=== PATIENT | female | born 1960 | race Caucasian/White ===

== ENCOUNTER 2019-01-22 19:19 | Inpatient (IN) | payer OTHER ==
--- NOTE | 2019-01-22 20:25 | PDOC ---
History of Present Illness - General Chief Complaint: Injury Stated Complaint: LFT WRIST PAIN Time Seen by Provider: 01/22/19 20:20 History Source: Patient Exam Limitations: No Limitations - History of Present Illness Initial Comments: 01/22/19 20:23 HISTORY OF PRESENT ILLNESS: 58-year-old woman past medical history of cerebral palsy presents emergency Department with left wrist pain status post fall on outstretched hand. Patient reports she lost her balance while walking fall forward onto her wrist. Patient noted sudden onset pain and deformity within her wrist. No recent travel or sick contacts. PAST MEDICAL HISTORY: see HPI SURGICAL HISTORY: Denies ALLERGIES: No known drug allergies REVIEW OF SYSTEMS General/Constitutional: Denies fever or chills. Denies weakness, weight change. HEENT: Denies change in vision. Denies ear pain or discharge. Denies sore throat. Cardiovascular: Denies chest pain or shortness of breath. Respiratory: Denies cough, wheezing, or hemoptysis. Gastrointestinal: Denies nausea, vomiting, diarrhea or constipation. Denies rectal bleeding. Genitourinary: Denies dysuria, frequency, or change in urination. Musculoskeletal: see HPI Skin and breasts: Denies rash or easy bruising. Neurologic: Denies headache, vertigo, loss of consciousness, or loss of sensation. Psychiatric: Denies depression or anxiety. Endocrine: Denies increased thirst. Denies abnormal weight change. Hematologic/Lymphatic: Denies anemia, easy bleeding, or history of blood clots. Allergic/Immunologic: Denies hives or skin allergy. Denies latex allergy. PHYSICAL EXAM General Appearance: Well-appearing, appropriately dressed. No apparent distress , no intoxication. HEENT: EOMI, PERRLA, normal ENT inspection, normal voice, TMs normal, pharynx normal. No conjunctival pallor. No photophobia, scleral icterus. Neck: Supple. Trachea midline. No tenderness, rigidity, carotid bruit, stridor , lymphadenopathy, or thyromegaly. Respiratory/Chest: Lungs CTAB. No shortness of breath, chest tenderness, respiratory distress, accessory muscle use. No crackles, rales, rhonchi, stridor , wheezing, dullness Cardiovascular: RRR. S1, S2. No JVD, murmur, bradycardia, tachycardia. Musculoskeletal/Extremities: Deformity noted of the left wrist. Tender to palpation over the radius at the level of the mid forearm. 2+ radial pulses present. Decreased range of motion with extension of the wrist. Capillary refill is less than 2 seconds. Full sensation noted distal to injury. Integumentary: Appropriate color, dry, warm. No cyanosis, erythema, jaundice or rash 01/22/19 22:35 01/22/19 22:38 Past History - Past Medical History Allergies/Adverse Reactions: Allergies Allergy/AdvReac Type Severity Reaction Status Date / Time No Known Allergies Allergy Verified 01/22/19 19:38 Home Medications: Ambulatory Orders Aspirin [ASA -] 81 mg PO DAILY 01/22/19 COPD: No - Suicide/Smoking/Psychosocial Hx Smoking History: Never smoked Have you smoked in the past 12 months: No Information on smoking cessation initiated: No Hx Alcohol Use: No Drug/Substance Use Hx: No *Physical Exam - Vital Signs Last Vital Signs Temp Pulse Resp BP Pulse Ox 98.1 F 109 H 18 124/94 100 01/22/19 19:36 01/22/19 19:36 01/22/19 19:36 01/22/19 19:36 01/22/19 19:36 ED Treatment Course - LABORATORY CBC & Chemistry Diagram: 01/22/19 20:52 01/22/19 20:52 Medical Decision Making - Medical Decision Making 01/22/19 20:24 A/P: 58-year-old woman with left wrist pain status post FOOSH Patient is refusing analgesics at this time Tender to palpation over the ulna at the mid shaft X-rays of hand, wrist and forearm of the left arm Reassess 01/22/19 21:10 Case was discussed with Dr. Landeros of orthopedics who will come to the emergency department for closed reduction of the radius. 01/22/19 22:34 Postreduction films reveal inability to reduce. Patient will be admitted to the hospitalist service for medical clearance prior to ORIF with orthopedics tomorrow. Patient is to be nothing by mouth after midnight. 01/22/19 22:41 Upon further discussion with orthopedics, he is unsure he'll have the equipment required to remove previous plate that was put in. He recommends transfer to tertiary care center [facility] to remove the old plate and performed a new surgery. Patient has been signed out to [facility] for continued evaluation and transfer. *DC/Admit/Observation/Transfer Diagnosis at time of Disposition: Distal radius fracture, left Qualifiers: Encounter type: initial encounter Fracture type: closed - Referrals - Patient Instructions - Post Discharge Activity
[2019-01-22 21:02] LABS: BASO % 0.3 % (0-2.0); EOS % 0.1 % (0-4.5); HEMATOCRIT 40.9 % (32.4-45.2); HEMOGLOBIN 13.8 GM/dL (10.7-15.3); LYMPH % 13.3 % (8-40); MCHC 33.7 g/dl (32.0-36.0); MEAN PLT VOLUME 8.9 fl (7.5-11.1); MONO % 6.2 % (3.8-10.2); NEUT % 80.1 % (42.8-82.8); PLATELET COUNT 248 K/MM3 (134-434); RBC 4.45 M/mm3 (3.60-5.2); RDW 13.3 % (11.6-15.6); WHITE BLOOD COUNT 10.7 K/mm3 (4.0-10.0)
[2019-01-22] MEDS ORDERED: LIDOCAINE HCL 2% (50ML VIAL) SNB ONE (21:07)
[2019-01-22 21:13] LABS: INR 1.05 (0.83-1.09); PROTHROMBIN TIME (PATIENT) 12.4 SEC (9.7-13.0)
[2019-01-22] MEDS ORDERED: LIDOCAINE HCL 1%, 10 MG/ML (20ML VIAL) ONE (21:15)
[2019-01-22] MEDS ORDERED: LIDOCAINE HCL 1%, 10 MG/ML (50 mL VIAL) IO ONE (21:31)
[2019-01-22] MEDS ORDERED: morphine CARPU-JECT 2 MG/1 ML DISP.SYRIN IVPUSH ONE (21:33)
[2019-01-22] MEDS ORDERED: morphine SULFATE 4 MG/ML VIAL ONE (21:38)
[2019-01-22 21:39] LABS: ANION GAP 10 MMOL/L (8-16); BLOOD UREA NITROGEN 25 mg/dL (7-18); CALCIUM 9.1 mg/dL (8.5-10.1); CHLORIDE 107 mmol/L (98-107); CO2 22 mmol/L (21-32); CREATININE 0.6 mg/dL (0.55-1.3); GLUCOSE,RANDOM 100 mg/dL (74-106); SODIUM 139 mmol/L (136-145)
[2019-01-22 21:40] LABS: POTASSIUM 4.4 mmol/L (3.5-5.1)
--- NOTE | 2019-01-22 21:40 | CONSULT ---
Consult - text type - Consultation Consultation Note: ORTHOPEDIC SURGERY CONSULTATION NOTE Department of Orthopedic Surgery HISTORY OF PRESENT ILLNESS Ms. Granado is a 58 year old right hand dominant female with history of CP who presents to [facility] Emergency Room s/p fall with left wrist pain. The orthopedic service was consulted for a wrist fracture. The injury occurred after a fall onto outstretched hand at home. The patient notes significant pain and swelling of the left wrist. Denies any other injuries. Denies numbness, tingling or other constitutional complaints. Denies tobacco use, drug use, alcohol abuse. The patient lives with family and uses an assistive device at baseline. She states she loses her balance when she stands up too quickly. She denies any dizziness, LOC, or headache. Patient states that she fell onto her outstretched left arm in the past as well and had a distal radius fracture that was treated with a plate and screws. Patient does not remember who did her surgery, but believes it was performed at an outside tertiary care center several years ago. FAMILY HISTORY non-contributory REVIEW OF SYMPTOMS A twelve-point review of systems was performed and was negative except as noted in HPI. PHYSICAL EXAM Constitutional: Alert and oriented to person, place, and time. Appears well- developed and well-nourished. No acute distress, appropriate mood and affect. Right Upper Extremity: Skin warm, dry, and intact; no lesions, rashes or ulcers noted. Muscle mass equal and symmetric to contralateral side. No atrophy noted. No masses or effusions noted. No tenderness to palpation all joints; non-tender throughout rest of extremity. Full passive and active ROM, free from pain. Joints stable with no pathologic laxity. M/R/U/MSK/AX motor intact; SILT distally; 2+ radial pulses; Cap refill brisk. Tone and reflexes normal. Left Upper Extremity: Skin warm, dry, and intact; no lesions, rashes or ulcers noted. Muscle mass equal and symmetric to contralateral side. No atrophy noted. No masses or effusions noted. Tender to palpation at the distal radius with an obvious deformity. No tenting of the skin noted; nontender throughout rest of extremity. Full passive and active ROM of the elbow and shoulder, free from pain. LROM of the left wrist secondary to pain and swelling. Joints otherwise stable with no pathologic laxity. M/R/U/MSK/AX motor intact; SILT distally; 2+ radial pulses; Cap refill brisk. Tone and reflexes normal. Right Lower Extremity: Skin warm, dry, and intact; no lesions, rashes or ulcers noted. Muscle mass equal and symmetric to contralateral side. No atrophy noted. No masses or effusions noted. No tenderness to palpation all joints; nontender throughout rest of extremity. No cords or calf tenderness No significant calf/ankle edema. Full passive and active ROM, free from pain. Joints stable with no pathologic laxity. EHL/TA/GS motor intact; SILT distally; 2+ DP pulses; Cap refill brisk. Tone and reflexes normal. Left Lower Extremity: Skin warm, dry, and intact; no lesions, rashes or ulcers noted. Muscle mass equal and symmetric to contralateral side. No atrophy noted. No masses or effusions noted. No tenderness to palpation all joints; nontender throughout rest of extremity. No cords or calf tenderness No significant calf/ankle edema. Full passive and active ROM, free from pain. Joints stable with no pathologic laxity. EHL/TA/GS motor intact; SILT distally; 2+ DP pulses; Cap refill brisk. Tone and reflexes normal. Social History Smoking history Never smoked Hx Alcohol Use No Allergies Allergy/AdvReac Type Severity Reaction Status Date / Time No Known Allergies Allergy Verified 01/22/19 19:38 Vital Signs (last) Temp Pulse Resp BP Pulse Ox 98.1 F 109 H 18 124/94 100 01/22/19 19:36 01/22/19 19:36 01/22/19 19:36 01/22/19 19:36 01/22/19 19:36 Intake and Output 01/20/19 01/21/19 01/22/19 23:59 23:59 23:59 Other: Weight 140 lb Height 4 ft 11.5 in Body Mass Index (BMI) 27.8 Weight Measurement Method Standing Scale PT with INR 12.40 SEC (9.7-13.0) 01/22/19 20:52 IMAGING I personally reviewed all radiographs, and other relevant imaging. They demonstrate a left ngoc-implant distal third radius fracture at the level of the most proximal portion of the implant. ASSESSMENT AND PLAN Ms. Granado is a 58 year old female presenting status post fall with a left sided distal third ngoc-implant fracture. We have reviewed the imaging and clinical findings in detail, as well as their potential implications. After appropriate informed discussion, the patient was placed in a well-padded sugartong splint. Patient was instructed regarding: non weight bearing on fractured side in sling. signs and symptoms of compartment syndrome and need to seek immediate care should new onset numbness, tingling, or significantly increasing pain occur. maintain strict elevation above the level of the heart keeping the splint clean and dry. - I explained to the patient that this type of fracture will require a revision distal radius open reduction internal fixation, and she would like to be transferred to [facility] at this time for further surgical care. I think this is reasonable seeing as the fracture is operative and will require further workup of her previous surgery and surgeon before the procedure. All questions were answered. Thank you for involving our team in the care of this patient. PROCEDURE NOTE: After verbal consent obtained and allergies reviewed with patient, 5cc's of 2% Lidocaine plain was injected as a hematoma block into the left distal radius fracture hematoma using strict sterile precautions. The patient tolerated this well. A reduction maneuver was then performed and a well padded sugartong splint was applied. The patient tolerated this well, and was able to move her fingers and had no numbness or tingling. Post Reduction X-rays unchanged, and patient refusing another reduction and splinting at this time.
[2019-01-22] MEDS ORDERED: ONDANSETRON 4 MG/2 ML VIAL ONE (21:49)
[2019-01-22] MEDS ORDERED: ONDANSETRON 4 MG/2 ML VIAL IVPUSH ONE (21:54)
--- NOTE | 2019-01-22 22:42 | PDOC ---
*Physical Exam - Vital Signs Last Vital Signs Temp Pulse Resp BP Pulse Ox 98.1 F 109 H 18 124/94 100 01/22/19 19:36 01/22/19 19:36 01/22/19 19:36 01/22/19 19:36 01/22/19 19:36 ED Treatment Course - LABORATORY CBC & Chemistry Diagram: 01/26/19 06:00 01/26/19 06:00 - ADDITIONAL ORDERS Additional order review: Laboratory Results 01/22/19 01/22/19 01/22/19 20:52 20:52 20:52 PT with INR 12.40 INR 1.05 Sodium 139 Potassium 4.4 Chloride 107 Carbon Dioxide 22 Anion Gap 10 BUN 25 H Creatinine 0.6 Creat Clearance w eGFR 102.32 Random Glucose 100 Calcium 9.1 Blood Type Cancelled Antibody Screen Cancelled 01/22/19 20:52 RBC 4.45 MCV 92.0 MCHC 33.7 RDW 13.3 MPV 8.9 Neutrophils % 80.1 Lymphocytes % 13.3 Monocytes % 6.2 Eosinophils % 0.1 Basophils % 0.3 - Medications Given in the ED: ED Medications Discontinued Medications Generic Name Dose Route Start Last Admin Trade Name Freq PRN Reason Stop Dose Admin Lidocaine HCl 20 mg 01/22/19 21:07 01/22/19 21:35 Xylocaine 2% SNB 01/22/19 21:08 Not Given ONCE ONE Lidocaine HCl 20 ml 01/22/19 21:31 01/22/19 21:35 Xylocaine 1% IO 01/22/19 21:32 20 ml ONCE ONE Administration Morphine Sulfate 2 mg 01/22/19 21:33 01/22/19 21:53 Morphine Injection - IVPUSH 01/22/19 21:34 2 mg ONCE ONE Administration Ondansetron HCl 4 mg 01/22/19 21:54 01/22/19 21:56 Zofran Injection IVPUSH 01/22/19 21:55 4 mg ONCE ONE Administration Medical Decision Making - Medical Decision Making 01/22/19 22:41 Patient signed out by SHARONDA Zuniga In short patient is a 58 year old woman with L wrist pain after falling on outstretched arm, now with displaced distal radial fx Orthopedics evaluated patient will admit for pain control and plan for OR hardware removal Discussed case with Dr. Landeros, orthopedics *DC/Admit/Observation/Transfer Diagnosis at time of Disposition: Distal radius fracture, left Qualifiers: Encounter type: initial encounter Fracture type: closed - Discharge Dispostion Disposition: HOME Condition at time of disposition: Fair Decision to Admit order: Yes - Referrals - Patient Instructions - Post Discharge Activity
--- NOTE | 2019-01-22 22:59 | PN ---
Teaching Attending Note Name of Resident: Claritza García ATTENDING PHYSICIAN STATEMENT I saw and evaluated the patient. I reviewed the resident's note and discussed the case with the resident. I agree with the resident's findings and plan as documented. SUBJECTIVE: Patient is a 58 year old woman right hand dominant with PMH of Cerebral palsy to the ER with left wrist pain after a fall. The injury occurred after a fall onto outstretched hand at home. The patient notes significant pain and swelling of the left wrist. Denies any other injuries. Denies numbness, tingling or other constitutional complaints. Denies tobacco use, drug use, alcohol abuse. The patient lives with family and uses an assistive device at baseline. She states she loses her balance when she stands up too quickly. She denies any dizziness, LOC, or headache. Patient states that she fell onto her outstretched left arm in the past as well and had a distal radius fracture that was treated with a plate and screws. Patient does not remember who did her surgery, but believes it was performed at [facility] several years ago. OBJECTIVE: Alert Vital Signs Period Temp Pulse Resp BP Sys/Wallace Pulse Ox Last 24 Hr 98.1 F 109 18 124/94 100 HEENT: No Jaundice, eye redness or discharge, PERRLA, EOMI. Normocephalic, atraumatic. External ears are normal and hearing is grossly intact. No nasal discharge. Neck: Supple, nontender. No palpable adenopathy or thyromegaly. No JVD Chest: Good effort. Clear to auscultation and percussion. Heart: Regular. No S3, rub or murmur Abdomen: Not distended, soft, nontender and no HSM. No rebound or guarding. Normal bowel sounds. Ext: Peripheral pulses intact. No leg edema. Skin: Warm and dry. No petechiae, rash or ecchymosis. Neuro: Alert. Oriented x3. CN 2-12 grossly intact. Sensation grossly intact in all four extremities and DTR are symmetric. Psych: Appropriate mood and affect. Good insight. Home Medications Medication Instructions Recorded Aspirin [ASA -] 81 mg PO DAILY 01/22/19 Abnormal Lab Results 01/22/19 01/22/19 20:52 20:52 WBC 10.7 H Absolute Neuts (auto) 8.6 H BUN 25 H ASSESSMENT AND PLAN: 1. Closed left radius fracture - 2. DVT prophylaxis - Lovenox 40 mg SQ q 24 hours. 3. Advance directives - Full code
--- NOTE | 2019-01-23 01:21 | PN ---
Progress Note (short form) - Note Progress Note: Patient's transfer refused by [facility], therefore the patient will be admitted to [facility] for observation. It was discovered that the patient had her left distal radius ORIF performed by Dr. Ladd at [facility] in 2012; the patient's records at that time were under the last name [facility]. Plan: -Admit to medical team for observation overnight, and evaluation by Dr. Ladd -Pain Control -DVT prophylaxis -Strict ice / elevation left wrist in splint (prop up with pillow under wrist) -Keep splint clean/dry/intact -Will discuss with Dr. Ladd for further orthopedic care.
[2019-01-23] MEDS ORDERED: ACETAMINOPHEN 325 MG TABLET (FP) PO PRN (02:17)
[2019-01-23] MEDS ORDERED: MORPHINE SULFATE 2 MG/ML VIAL IVPUSH PRN (02:17)
[2019-01-23] MEDS ORDERED: oxyCODONE HCL 5 MG TABLET PO PRN ×2 (02:17)
--- NOTE | 2019-01-23 03:00 | PN ---
Teaching Attending Note Name of Resident: Arianna Brown ATTENDING PHYSICIAN STATEMENT I saw and evaluated the patient. I reviewed the resident's note and discussed the case with the resident. I agree with the resident's findings and plan as documented. SUBJECTIVE: Patient is a 58 year old right hand dominant woman with PMH of cerebral palsy who presents to the ER with left wrist pain after a fall. The injury occurred after a fall onto outstretched hand at home. The patient notes significant pain and swelling of the left wrist. Denies any other injuries. Denies numbness, tingling or other constitutional complaints. Denies tobacco use, drug use, alcohol abuse. The patient lives with family and uses an assistive device at baseline. She states she loses her balance when she stands up too quickly. She denies any dizziness, LOC, or headache. Patient states that she fell onto her outstretched left arm in the past as well and had a distal radius fracture that was treated with a plate and screws. Patient does not remember who did her surgery, but believes it was performed at an outside tertiary care center several years ago. Xray showed a distal left radius fracture. Patient was seen by Dr. Landeros in the ER and an attempt at reduction of the fracture was unsuccesful. Efoorts to transfer her to other institutions failed becuase they refused to take her. Dr. Landeros recommends pain control, strict ice /elevation left wrist in splint (prop up with pillow under wrist) and keep splint clean/dry/intact OBJECTIVE: Alert and in pain Vital Signs Period Temp Pulse Resp BP Sys/Wallace Pulse Ox Last 24 Hr 98.1 F 109 18 124/94 100 HEENT: No Jaundice, eye redness or discharge, PERRLA, EOMI. Normocephalic, atraumatic. External ears are normal and hearing is grossly intact. No nasal discharge. Neck: Supple, nontender. No palpable adenopathy or thyromegaly. No JVD Chest: Good effort. Clear to auscultation and percussion. Heart: Regular. No S3, rub or murmur Abdomen: Not distended, soft, nontender and no HSM. No rebound or guarding. Normal bowel sounds. Ext: Peripheral pulses intact. No leg edema. Left arm in a soft cast and sling. Able to wiggle fingers without pain. No discoloration of fingers or loss of sensation. Skin: Warm and dry. No petechiae, rash or ecchymosis. Neuro: Alert. Oriented x3. CN 2-12 grossly intact. Sensation grossly intact in all four extremities and DTR are symmetric. Psych: Appropriate mood and affect. Good insight. Current Medications Generic Name Dose Route Start Last Admin Trade Name Freq PRN Reason Stop Dose Admin Acetaminophen 650 mg 01/23/19 02:17 Tylenol - PO Q6H PRN PAIN LEVEL 1-3 OR FEVER Heparin Sodium (Porcine) 5,000 unit 01/23/19 06:00 Heparin - SQ TID SHANNAN Morphine Sulfate 1 mg 01/23/19 02:17 Morphine Sulfate IVPUSH Q4H PRN BREAKTHROUGH PAIN LEVEL 7 - 10 Oxycodone HCl 5 mg 01/23/19 02:17 Roxicodone - PO Q6H PRN PAIN LEVEL 4 - 6 Oxycodone HCl 10 mg 01/23/19 02:17 Roxicodone - PO Q6H PRN PAIN LEVEL 7 - 10 Home Medications Medication Instructions Recorded Aspirin [ASA -] 81 mg PO DAILY 01/22/19 Abnormal Lab Results 01/22/19 01/22/19 20:52 20:52 WBC 10.7 H Absolute Neuts (auto) 8.6 H BUN 25 H ASSESSMENT AND PLAN: 1. Left radius fracture - Will use IV morphine and oxycodone for pain control and follow the recommendations by Dr. Landeros (strict ice /elevation left wrist in splint - prop up with pillow under wrist and keep splint clean/dry/intact). Monitor closely for any evidence of compartment syndrome. Use Senna for bowel regimen. Patient is very hungry and we will feed her since there is no schedule for surgery at this time. 2. DVT prophylaxis - Lovenox 40 mg SQ q 24 hours. 3. Advance directives - Full code
--- NOTE | 2019-01-23 04:21 | HP ---
CHIEF COMPLAINT:left arm pain PCP: HISTORY OF PRESENT ILLNESS: Patient is a 58 year old female with past medical history of cerebral palsy, presented to the ED with a left forearm pain after fall on an outstretched hand. Patient has a history of falling onto her outstretched left arm, where she had previous surgery on the same arm more than 5 years ago. Yesterday morning, patient fell and did not tell anyone until that last night when she noticed significant pain and swelling on her left wrist. She denies any headaches, dizziness or lightheadedness prior to the fall and reports she has difficulty balancing, and would often fall. She walks with a walker. Patient denies any numbness, weakness or tingling of her hands, but reports significant pain in the area. At the ED, ortho was consulted and attempt to reduce the fracture was unsuccessful. Attempt was also made to transfer patient to [facility] but was denied. ER course was notable for: (1)Left arm xray done (2) (3) Recent Travel:denies PAST MEDICAL HISTORY: Cerebral palsy PAST SURGICAL HISTORY: ORIF of left forearm Social History: Smoking:denies Alcohol:denies Drugs: denies Family History: Allergies No Known Allergies Allergy (Verified 01/22/19 19:38) HOME MEDICATIONS: Home Medications Medication Instructions Recorded Aspirin [ASA -] 81 mg PO DAILY 01/22/19 REVIEW OF SYSTEMS CONSTITUTIONAL: Absent: fever, chills, diaphoresis, generalized weakness, malaise, loss of appetite, weight change HEENT: Absent: rhinorrhea, nasal congestion, throat pain, throat swelling, difficulty swallowing, mouth swelling, ear pain, eye pain, visual changes CARDIOVASCULAR: Absent: chest pain, syncope, palpitations, irregular heart rate, lightheadedness , peripheral edema RESPIRATORY: Absent: cough, shortness of breath, dyspnea with exertion, orthopnea, wheezing, stridor, hemoptysis GASTROINTESTINAL: Absent: abdominal pain, abdominal distension, nausea, vomiting, diarrhea, constipation, melena, hematochezia GENITOURINARY: Absent: dysuria, frequency, urgency, hesitancy, hematuria, flank pain, genital pain MUSCULOSKELETAL: left arm pain Absent: myalgia, arthralgia, joint swelling, back pain, neck pain SKIN: Absent: rash, itching, pallor HEMATOLOGIC/IMMUNOLOGIC: Absent: easy bleeding, easy bruising, lymphadenopathy, frequent infections ENDOCRINE: Absent: unexplained weight gain, unexplained weight loss, heat intolerance, cold intolerance NEUROLOGIC: Absent: headache, focal weakness or paresthesias, dizziness, unsteady gait, seizure, mental status changes, bladder or bowel incontinence PSYCHIATRIC: Absent: anxiety, depression, suicidal or homicidal ideation, hallucinations. PHYSICAL EXAMINATION Vital Signs - 24 hr 01/22/19 19:36 Temperature 98.1 F Pulse Rate 109 H Respiratory 18 Rate Blood Pressure 124/94 O2 Sat by Pulse 100 Oximetry (%) GENERAL: Awake, alert, and fully oriented, in no acute distress. HEAD: Normal with no signs of trauma. EYES:PERRLA, EOMI, sclera anicteric, conjunctiva clear. EARS, NOSE, THROAT: oropharynx clear without exudates. Moist mucous membranes. NECK: Normal range of motion, supple without lymphadenopathy LUNGS: Breath sounds equal, clear to auscultation bilaterally. HEART: Regular rate and rhythm, normal S1 and S2 without murmur, rub or gallop. ABDOMEN: Soft, nontender, not distended, normoactive bowel sounds. MUSCULOSKELETAL: Normal range of motion at all joints. No CVA tenderness. UPPER EXTREMITIES: 2+ pulses, warm, well-perfused. LUE: left arm sling in place , +pain on fractured area, but sensation and motor of fingers intact. LOWER EXTREMITIES: 2+ pulses, warm, well-perfused. No calf tenderness. No peripheral edema. Laboratory Results - last 24 hr 01/22/19 01/22/19 01/22/19 20:52 20:52 20:52 WBC 10.7 H RBC 4.45 Hgb 13.8 Hct 40.9 MCV 92.0 MCH 31.0 MCHC 33.7 RDW 13.3 Plt Count 248 MPV 8.9 Absolute Neuts (auto) 8.6 H Neutrophils % 80.1 Lymphocytes % 13.3 Monocytes % 6.2 Eosinophils % 0.1 Basophils % 0.3 Nucleated RBC % 0 PT with INR 12.40 INR 1.05 Sodium 139 Potassium 4.4 Chloride 107 Carbon Dioxide 22 Anion Gap 10 BUN 25 H Creatinine 0.6 Creat Clearance w eGFR 102.32 Random Glucose 100 Calcium 9.1 Blood Type Antibody Screen 01/22/19 20:52 WBC RBC Hgb Hct MCV MCH MCHC RDW Plt Count MPV Absolute Neuts (auto) Neutrophils % Lymphocytes % Monocytes % Eosinophils % Basophils % Nucleated RBC % PT with INR INR Sodium Potassium Chloride Carbon Dioxide Anion Gap BUN Creatinine Creat Clearance w eGFR Random Glucose Calcium Blood Type Cancelled Antibody Screen Cancelled ASSESSMENT/PLAN: Patient is a 58 year old female with past medical history of cerebral palsy, presented to the ED with a left forearm pain after fall on an outstretched hand. #Left radius fracture -Ortho (Dr. Landeros) consulted. Recommendations appreciated. -Pain control with oxycodone and morphine PRN -Strict ice/elevation left wrist in splint -Keep splint clean/dry/intact -Watch for signs of compartment syndrome including pain and paresthesias -Consult to Dr. Wilberto davenport. #FEN -Not on any standing fluids -Electrolytes wnl, routine bmp monitoring -Regular diet #Prophylaxis -Heparin 5000unit sq tid #disposition -full code -med surge obs Visit type - Emergency Visit Emergency Visit: Yes ED Registration Date: 01/23/19 Care time: The patient presented to the Emergency Department on the above date and was hospitalized for further evaluation of their emergent condition. - New Patient This patient is new to me today: Yes Date on this admission: 01/23/19 - Critical Care Critical Care patient: No
[2019-01-23] MEDS ORDERED: HEPARIN NA (PORCINE) 5,000 UNITS/ML 1ML VIAL ONE (05:48)
[2019-01-23] MEDS: HEPARIN NA (PORCINE) 5,000 UNITS/ML 1ML VIAL SQ SCH ×3 (06:00→22:18)
[2019-01-23] MEDS ORDERED: oxyCODONE HCL 5 MG TABLET ONE (06:03)
[2019-01-23 07:26] LABS: BASO % 0.3 % (0-2.0); EOS % 0.3 % (0-4.5); HEMATOCRIT 37.2 % (32.4-45.2); HEMOGLOBIN 12.8 GM/dL (10.7-15.3); LYMPH % 20.7 % (8-40); MCH 31.5 pg (25.7-33.7); MCHC 34.3 g/dl (32.0-36.0); MEAN CELL VOLUME 91.7 fl (80-96); MEAN PLT VOLUME 8.8 fl (7.5-11.1); MONO % 9.7 % (3.8-10.2); PLATELET COUNT 229 K/MM3 (134-434); RBC 4.06 M/mm3 (3.60-5.2); RDW 13.3 % (11.6-15.6); WHITE BLOOD COUNT 7.1 K/mm3 (4.0-10.0)
[2019-01-23 07:37] LABS: INR 1.08 (0.83-1.09); PROTHROMBIN TIME (PATIENT) 12.7 SEC (9.7-13.0)
[2019-01-23 07:40] LABS: ACTIVATED PTT 34.6 SECONDS (25.2-36.5)
[2019-01-23 07:51] LABS: ALBUMIN 3.4 g/dl (3.4-5.0); ALK PHOS 67 U/L (45-117); ANION GAP 8 MMOL/L (8-16); BILIRUBIN,TOTAL 0.6 mg/dL (0.2-1); BLOOD UREA NITROGEN 28 mg/dL (7-18); CALCIUM 8.7 mg/dL (8.5-10.1); CHLORIDE 107 mmol/L (98-107); CO2 25 mmol/L (21-32); CREATININE 0.7 mg/dL (0.55-1.3); GLUCOSE,RANDOM 93 mg/dL (74-106); MAGNESIUM 2.3 mg/dL (1.8-2.4); PHOSPHOROUS 3.4 mg/dL (2.5-4.9); SGOT/AST 16 U/L (15-37); SGPT/ALT 29 U/L (13-61); SODIUM 139 mmol/L (136-145); TOT PROT 6.5 g/dl (6.4-8.2)
--- NOTE | 2019-01-23 08:55 | PN ---
Physical Exam: SUBJECTIVE: Patient seen and examined OBJECTIVE: Vital Signs Period Temp Pulse Resp BP Sys/Wallace Pulse Ox Last 24 Hr 98.1 F-99.0 F 95-109 18 106-124/64-94 98-100 In no distress at this time CVS:S1S2 CTAB Left hand is in cast Abd:BS+, nt/nd Laboratory Results - last 24 hr 01/22/19 01/22/19 01/22/19 20:52 20:52 20:52 WBC 10.7 H RBC 4.45 Hgb 13.8 Hct 40.9 MCV 92.0 MCH 31.0 MCHC 33.7 RDW 13.3 Plt Count 248 MPV 8.9 Absolute Neuts (auto) 8.6 H Neutrophils % 80.1 Lymphocytes % 13.3 Monocytes % 6.2 Eosinophils % 0.1 Basophils % 0.3 Nucleated RBC % 0 PT with INR 12.40 INR 1.05 PTT (Actin FS) Sodium 139 Potassium 4.4 Chloride 107 Carbon Dioxide 22 Anion Gap 10 BUN 25 H Creatinine 0.6 Creat Clearance w eGFR 102.32 Random Glucose 100 Calcium 9.1 Phosphorus Magnesium Total Bilirubin AST ALT Alkaline Phosphatase Total Protein Albumin Blood Type Antibody Screen 01/22/19 01/23/19 01/23/19 20:52 06:30 06:30 WBC 7.1 RBC 4.06 Hgb 12.8 Hct 37.2 MCV 91.7 MCH 31.5 MCHC 34.3 RDW 13.3 Plt Count 229 MPV 8.8 Absolute Neuts (auto) 4.9 Neutrophils % 69.0 Lymphocytes % 20.7 D Monocytes % 9.7 Eosinophils % 0.3 D Basophils % 0.3 Nucleated RBC % 0 PT with INR 12.70 INR 1.08 PTT (Actin FS) 34.6 Sodium Potassium Chloride Carbon Dioxide Anion Gap BUN Creatinine Creat Clearance w eGFR Random Glucose Calcium Phosphorus Magnesium Total Bilirubin AST ALT Alkaline Phosphatase Total Protein Albumin Blood Type Cancelled Antibody Screen Cancelled 01/23/19 06:30 WBC RBC Hgb Hct MCV MCH MCHC RDW Plt Count MPV Absolute Neuts (auto) Neutrophils % Lymphocytes % Monocytes % Eosinophils % Basophils % Nucleated RBC % PT with INR INR PTT (Actin FS) Sodium 139 Potassium 4.0 Chloride 107 Carbon Dioxide 25 Anion Gap 8 BUN 28 H Creatinine 0.7 Creat Clearance w eGFR 85.65 Random Glucose 93 Calcium 8.7 Phosphorus 3.4 Magnesium 2.3 Total Bilirubin 0.6 AST 16 ALT 29 Alkaline Phosphatase 67 Total Protein 6.5 Albumin 3.4 Blood Type Antibody Screen Active Medications Generic Name Dose Route Start Last Admin Trade Name Micaela PRN Reason Stop Dose Admin Acetaminophen 650 mg 01/23/19 02:17 Tylenol - PO Q6H PRN PAIN LEVEL 1-3 OR FEVER Heparin Sodium (Porcine) 5,000 unit 01/23/19 06:00 01/23/19 06:00 Heparin - SQ 5,000 unit TID SHANNAN Administration Morphine Sulfate 1 mg 01/23/19 02:17 Morphine Sulfate IVPUSH Q4H PRN BREAKTHROUGH PAIN LEVEL 7 - 10 Oxycodone HCl 5 mg 01/23/19 02:17 01/23/19 06:05 Roxicodone - PO 5 mg Q6H PRN Administration PAIN LEVEL 4 - 6 Oxycodone HCl 10 mg 01/23/19 02:17 Roxicodone - PO Q6H PRN PAIN LEVEL 7 - 10 ASSESSMENT/PLAN: 58 Y/O F W cerebral palsy, hx of fall and Fx in the left arm in the past, P/W pain and swelling in the R arm after a fall on out stretch arm, found to have Fx in the left wrist. #Left radius fracture -Ortho (Dr. Landeros) consulted. Recommendations appreciated. -Pain control with oxycodone and morphine PRN( she is refusing them) -Strict ice/elevation left wrist in splint -Keep splint clean/dry/intact -Watch for signs of compartment syndrome including pain and paresthesias -Consult to Dr. Ladd placed and pending at this time. #FEN -Regular diet #Prophylaxis -Heparin 5000unit sq tid #disposition -full code -med surge obs HX of seizures when she was a child, not on meds Will ask OT to evaluate the patient as at baseline she walks with a walker which she can not use with one hadn Visit type - Emergency Visit Emergency Visit: Yes ED Registration Date: 01/23/19 Care time: The patient presented to the Emergency Department on the above date and was hospitalized for further evaluation of their emergent condition. - New Patient This patient is new to me today: No - Critical Care Critical Care patient: No - Discharge Referral Referred to [facility] Med P.C.: No
--- NOTE | 2019-01-23 11:03 | PN ---
Progress Note (short form) - Note Progress Note: ORTHOPEDIC SURGERY PROGRESS NOTE Department of Orthopedic Surgery SUBJECTIVE No acute events overnight. No complaints currently. Denies chest pain, shortness of breath, or calf pain. No nausea or vomiting. Tolerating oral intake. Pain control difficult overnight, but improving. Patient lives at home alone and walks with a walker at baseline for balance. PHYSICAL EXAMINATION General: Alert, oriented, cooperative and no distress. Upper Extremity: Splint intact; Visible skin intact, no lesions, rashes or ulcers noted. No atrophy noted. No masses or effusions noted. No tenderness to palpation. Patient moving all fingers without pain. No pain with passive stretch of fingers. SILT distally; 2+ radial pulses; Cap refill brisk. DVT Exam: No evidence of DVT seen on physical exam; No cords or calf tenderness ; No significant calf/ankle edema. Intake & Output 01/21/19 01/22/19 01/23/19 23:59 23:59 23:59 Other: Voiding Method Toilet Weight 140 lb Height 4 ft 11.5 in Body Mass Index (BMI) 27.8 Weight Measurement Method Standing Scale Active Medications Generic Name Dose Route Start Last Admin Trade Name Freq PRN Reason Stop Dose Admin Acetaminophen 650 mg 01/23/19 02:17 Tylenol - PO Q6H PRN PAIN LEVEL 1-3 OR FEVER Heparin Sodium (Porcine) 5,000 unit 01/23/19 06:00 01/23/19 06:00 Heparin - SQ 5,000 unit TID SHANNAN Administration Morphine Sulfate 1 mg 01/23/19 02:17 Morphine Sulfate IVPUSH Q4H PRN BREAKTHROUGH PAIN LEVEL 7 - 10 Oxycodone HCl 5 mg 01/23/19 02:17 01/23/19 06:05 Roxicodone - PO 5 mg Q6H PRN Administration PAIN LEVEL 4 - 6 Oxycodone HCl 10 mg 01/23/19 02:17 Roxicodone - PO Q6H PRN PAIN LEVEL 7 - 10 Vital Signs (last) Temp Pulse Resp BP Pulse Ox 99.0 F 95 H 18 106/64 98 01/23/19 04:41 01/23/19 04:41 01/22/19 19:36 01/23/19 04:41 01/23/19 07:15 Laboratory (coagulation) PT with INR 12.70 SEC (9.7-13.0) 01/23/19 06:30 Laboratory 01/23/19 06:30 01/23/19 06:30 ASSESSMENT AND PLAN Ms. Granado is a 58 year old female presenting status post fall with a left sided distal third ngoc-implant fracture - in splint. Left distal radius ORIF was performed by Dr. Ladd in 2012. Plan: -Pain Control -DVT prophylaxis -Strict ice / elevation left wrist in splint (prop up with pillow under wrist) -Keep splint clean/dry/intact -Discussed with Dr. Ladd, his team will see the patient for further orthopedic care. All questions were answered. Thank you for involving our team in the care of this patient.
[2019-01-23] MEDS ORDERED: morphine SULFATE 4 MG/ML VIAL ONE (16:15)
[2019-01-24] MEDS: HEPARIN NA (PORCINE) 5,000 UNITS/ML 1ML VIAL SQ SCH ×3 (05:50→21:48)
--- NOTE | 2019-01-24 12:06 | PN ---
Physical Exam: SUBJECTIVE: Patient seen and examined, In no distress, still does not want to take any lenz medication even tylenol OBJECTIVE: Vital Signs Period Temp Pulse Resp BP Sys/Wallace Pulse Ox Last 24 Hr 97.9 F-98.8 F 74-89 16-20 96-136/56-92 94-99 GENERAL: The patient is awake, alert, and fully oriented, in no acute distress. HEAD: Normal with no signs of trauma. EYES: PERRL, extraocular movements intact, sclera anicteric, conjunctiva clear. No ptosis. ENT: Ears normal, nares patent, oropharynx clear without exudates, moist mucous membranes. NECK: Trachea midline, full range of motion, supple. LUNGS: Breath sounds equal, clear to auscultation bilaterally, no wheezes, no crackles, no accessory muscle use. HEART: Regular rate and rhythm, S1, S2 without murmur, rub or gallop. ABDOMEN: Soft, nontender, nondistended, normoactive bowel sounds, no guarding, no rebound, no hepatosplenomegaly, no masses. EXTREMITIES: 2+ pulses, warm, well-perfused, no edema. NEUROLOGICAL: Cranial nerves II through XII grossly intact. Normal speech, gait not observed. PSYCH: Normal mood, normal affect. SKIN: Warm, dry, normal turgor, no rashes or lesions noted Active Medications Generic Name Dose Route Start Last Admin Trade Name Freq PRN Reason Stop Dose Admin Acetaminophen 650 mg 01/23/19 02:17 Tylenol - PO Q6H PRN PAIN LEVEL 1-3 OR FEVER Heparin Sodium (Porcine) 5,000 unit 01/23/19 06:00 01/24/19 05:50 Heparin - SQ 5,000 unit TID SHANNAN Administration Morphine Sulfate 1 mg 01/23/19 02:17 01/23/19 16:38 Morphine Sulfate IVPUSH 1 mg Q4H PRN Administration BREAKTHROUGH PAIN LEVEL 7 - 10 Oxycodone HCl 5 mg 01/23/19 02:17 01/23/19 06:05 Roxicodone - PO 5 mg Q6H PRN Administration PAIN LEVEL 4 - 6 Oxycodone HCl 10 mg 01/23/19 02:17 Roxicodone - PO Q6H PRN PAIN LEVEL 7 - 10 ASSESSMENT/PLAN: 58 Y/O F W cerebral palsy, hx of fall and Fx in the left arm in the past, P/W pain and swelling in the R arm after a fall on out stretch arm, found to have Fx in the left wrist. #Left radius fracture -Ortho (Dr. Landeros) consulted. Recommendations appreciated. -Pain control with oxycodone and morphine PRN( she is refusing them) -Strict ice/elevation left wrist in splint -Keep splint clean/dry/intact -Watch for signs of compartment syndrome including pain and paresthesias #FEN -Regular diet #Prophylaxis -Heparin 5000unit sq tid #disposition -full code -med surge obs HX of seizures when she was a child, not on meds Will ask OT to evaluate the patient as at baseline she walks with a walker which she can not use with one hand Dispo: pending OT Visit type - Emergency Visit Emergency Visit: Yes ED Registration Date: 01/23/19 Care time: The patient presented to the Emergency Department on the above date and was hospitalized for further evaluation of their emergent condition. - New Patient This patient is new to me today: No - Critical Care Critical Care patient: No - Discharge Referral Referred to [facility] Med P.C.: No
[2019-01-25] MEDS: HEPARIN NA (PORCINE) 5,000 UNITS/ML 1ML VIAL SQ SCH ×3 (05:54→21:49)
--- NOTE | 2019-01-25 10:41 | EKG ---
Test Reason : Blood Pressure : / mmHG Vent. Rate : 094 BPM Atrial Rate : 094 BPM P-R Int : 122 ms QRS Dur : 078 ms QT Int : 348 ms P-R-T Axes : 065 -28 050 degrees QTc Int : 435 ms POOR DATA QUALITY, INTERPRETATION MAY BE ADVERSELY AFFECTED NORMAL SINUS RHYTHM POSSIBLE LEFT ATRIAL ENLARGEMENT BORDERLINE ECG NO PREVIOUS ECGS AVAILABLE Confirmed by RADHA SANTOS MD ([id number]) on 01/25/2019 10:41:06 AM Referred By: SHAHID Confirmed By:RADHA SANTOS MD
--- NOTE | 2019-01-25 12:01 | PN ---
Progress Note, Physician Chief Complaint: Less pain Left UE denies any tingling and numbness - Current Medication List Current Medications: Active Medications Acetaminophen (Tylenol -) 650 mg PO Q6H PRN PRN Reason: PAIN LEVEL 1-3 OR FEVER Heparin Sodium (Porcine) (Heparin -) 5,000 unit SQ TID SHANNAN Last Admin: 01/25/19 05:54 Dose: 5,000 unit Morphine Sulfate (Morphine Sulfate) 1 mg IVPUSH Q4H PRN PRN Reason: BREAKTHROUGH PAIN LEVEL 7 - 10 Last Admin: 01/23/19 16:38 Dose: 1 mg Oxycodone HCl (Roxicodone -) 5 mg PO Q6H PRN PRN Reason: PAIN LEVEL 4 - 6 Last Admin: 01/23/19 06:05 Dose: 5 mg Oxycodone HCl (Roxicodone -) 10 mg PO Q6H PRN PRN Reason: PAIN LEVEL 7 - 10 - Objective Vital Signs: Vital Signs Temperature 98.8 F 01/25/19 09:00 Pulse Rate 88 01/25/19 09:00 Respiratory Rate 18 01/25/19 10:00 Blood Pressure 142/76 01/25/19 09:00 O2 Sat by Pulse Oximetry (%) 95 01/25/19 10:00 middle aged f not in distress HEENT: Mm moist, no anemia NECK: No JVD No Bruit CHEST: CTA B/L CVS: s1S2 r no m/g/r ABD: no distention, non tender EXT: No edema feet, no calf tenderness Left UE in the splint DRUMS TEACHER: cerbral palsy at base line , non focal Labs: CBC, BMP 01/23/19 06:30 01/23/19 06:30 INR, PTT INR 1.08 (0.83-1.09) 01/23/19 06:30 Problem List - Problems (1) Distal radius fracture, left Assessment/Plan: patient has h/O fracture s/p plating now present with fracture evaluted by ortho recommonded surgery in am, pain control, NPO after midnight. Code(s): S52.502A - UNSP FRACTURE OF THE LOWER END OF LEFT RADIUS, INIT Qualifiers: Encounter type: initial encounter Fracture type: closed (2) Cerebral palsy Assessment/Plan: able to walk with walker at home will F/U PT recommondation Code(s): G80.9 - CEREBRAL PALSY, UNSPECIFIED Qualifiers: Cerebral palsy type: ataxic Qualified Code(s): G80.4 - Ataxic cerebral palsy (3) Pre-op evaluation Assessment/Plan: 50 yrs old f admitted with Left wrist fracture after sustaining a mechanical fall hemodynamically stable afebrile, evaluted by ortho schedule for old ORIF removal and plating, no clinical sign of decompensted CHF, arrythmia or angina, EKG no acute St T change, if indicated surgery can be performed without any additional w/u. Discussed with the team. Code(s): Z01.818 - ENCOUNTER FOR OTHER PREPROCEDURAL EXAMINATION
--- NOTE | 2019-01-25 17:10 | PN ---
Progress Note (short form) - Note Progress Note: Pt seen and examined. In summary she is a 58 year old, right hand dominant female patient with CP who had a right distal radius fracture and subsequent ORIF over 1 year ago, who fell on , injuring her right wrist. She was admitted through the [facility] ER for monitoring, elevation and observation. She had significant swelling. She stated that she was doing very well after her previous surgery, her ROM and overall function were quite good, and she was very satisfied with the results. Previous surgery was done with a [employer] volar DVR plate. PE Right wrist is in a volar splint. Fingers are moderately swollen, she has been keeping it elevated. RUE is NVI, nl sensation throughout Good ROM with minimal pain all digits of her right hand. Good ROM R elbow. Xrays Show a displaced, transverse fracture of the right radial shaft at the proximal end of the plate. The plate and screws are intact. The previous fracture of the distal radius is healed. No signs of infection or any problems prior to the fall. Imp 58 yo right hand dom F s/p fall with an acute, right, displaced radial shaft fracture, in the setting of a previous distal radius fracture and ORIF with plate and screws. Plan Surgery/ORIF tomorrow, with a long volar plate. NPO after midnight tonight. All questions and concerns were addressed.
[2019-01-26] MEDS: HEPARIN NA (PORCINE) 5,000 UNITS/ML 1ML VIAL SQ SCH ×3 (06:02→21:45)
[2019-01-26 07:31] LABS: BASO % 0.3 % (0-2.0); EOS % 1.3 % (0-4.5); HEMATOCRIT 37.1 % (32.4-45.2); LYMPH % 26.6 % (8-40); MCH 32.6 pg (25.7-33.7); MCHC 35.1 g/dl (32.0-36.0); MEAN CELL VOLUME 92.9 fl (80-96); MEAN PLT VOLUME 8.8 fl (7.5-11.1); MONO % 7.4 % (3.8-10.2); NEUT % 64.4 % (42.8-82.8); PLATELET COUNT 235 K/MM3 (134-434); RDW 12.8 % (11.6-15.6); WHITE BLOOD COUNT 6.6 K/mm3 (4.0-10.0)
[2019-01-26 07:34] LABS: ANION GAP 7 MMOL/L (8-16); BLOOD UREA NITROGEN 20 mg/dL (7-18); CALCIUM 8.4 mg/dL (8.5-10.1); CHLORIDE 107 mmol/L (98-107); CO2 26 mmol/L (21-32); CREATININE 0.7 mg/dL (0.55-1.3); GLUCOSE,RANDOM 92 mg/dL (74-106); SODIUM 139 mmol/L (136-145)
--- NOTE | 2019-01-26 10:35 | PN ---
Physical Exam: SUBJECTIVE: Patient seen and examined at the bedside. ambulates with walker. wants to go home after surgery. OBJECTIVE: Vital Signs Period Temp Pulse Resp BP Sys/Wallace Pulse Ox Last 24 Hr 98 F-98.5 F 81-91 18-22 125-141/70-86 95 GENERAL: The patient is awake, alert, and fully oriented, in no acute distress. HEAD: Normal with no signs of trauma. EYES: PERRL, extraocular movements intact, sclera anicteric, conjunctiva clear. No ptosis. ENT: Ears normal, nares patent, oropharynx clear without exudates, moist mucous membranes. NECK: Trachea midline, full range of motion, supple. LUNGS: Breath sounds equal, clear to auscultation bilaterally, no wheezes HEART: Regular rate and rhythm, ABDOMEN: Soft, nontender, nondistended, normoactive bowel sounds, no guarding, EXTREMITIES: left arm immobilized, fingers warm Less pain Left UE denies any tingling and numbness-refusing pain medications. NEUROLOGICAL: Normal speech, ambulates with RW PSYCH: Normal mood, normal affect. SKIN: Warm, dry, normal turgor, no rashes or lesions noted Laboratory Results - last 24 hr 01/26/19 01/26/19 06:00 06:00 WBC 6.6 RBC 4.00 Hgb 13.0 Hct 37.1 MCV 92.9 MCH 32.6 MCHC 35.1 RDW 12.8 Plt Count 235 MPV 8.8 Absolute Neuts (auto) 4.3 Neutrophils % 64.4 Lymphocytes % 26.6 D Monocytes % 7.4 Eosinophils % 1.3 D Basophils % 0.3 Nucleated RBC % 0 Sodium 139 Potassium 4.0 Chloride 107 Carbon Dioxide 26 Anion Gap 7 L BUN 20 H Creatinine 0.7 Creat Clearance w eGFR 85.65 Random Glucose 92 Calcium 8.4 L Active Medications Generic Name Dose Route Start Last Admin Trade Name Freq PRN Reason Stop Dose Admin Acetaminophen 650 mg 01/23/19 02:17 Tylenol - PO Q6H PRN PAIN LEVEL 1-3 OR FEVER Heparin Sodium (Porcine) 5,000 unit 01/23/19 06:00 01/26/19 06:02 Heparin - SQ Not Given TID [facility] ASSESSMENT/PLAN: Patient is a 58 year old female her with left distal radial fracture after sustaining a mechanical fall. She has bee evaluated by ortho schedule for old ORIF with removal and plating. Patient has a history of falling onto her outstretched left arm, where she had previous surgery on the same arm more than 5 years ago. On exam, Patient denies any numbness, weakness or tingling of her hands, but reports significant pain in the area. At the ED, ortho was consulted and attempt to reduce the fracture was unsuccessful. Attempt was also made to transfer patient to [facility] but was denied. Distal radius fracture, left extremity s/p fall with an acute, right, displaced radial shaft fracture, in the setting of a previous distal radius fracture and ORIF with plate and screws. on immobilization cast for surgery today for repair Cerebral palsy continue supportive care History of ortega lower extremity residuals. ambulated with RW on ASA at home fen npo for OR today monitor electrolytes low salt prophy scds, ambulation full code Visit type - Emergency Visit Emergency Visit: Yes ED Registration Date: 01/25/19 Care time: The patient presented to the Emergency Department on the above date and was hospitalized for further evaluation of their emergent condition. - New Patient This patient is new to me today: Yes Date on this admission: 01/26/19 - Critical Care Critical Care patient: No - Discharge Referral Referred to [facility] Med P.C.: No
[2019-01-26] MEDS ORDERED: SODIUM CHLORIDE 1,000 ML IV SCH ×2 (13:30→19:04)
[2019-01-26 15:03] VITALS: BMI 28.3
[2019-01-26] MEDS ORDERED: ROPIVACAINE HCL 0.5% 30ML VIAL ONE (15:05)
[2019-01-26] MEDS ORDERED: MIDAZOLAM HCL 2 MG/2 ML SINGLE DOSE VIAL ONE ×2 (15:06)
[2019-01-26] MEDS ORDERED: ceFAZolin SODIUM 1 GM VIAL ONE (15:19)
[2019-01-26] MEDS ORDERED: SODIUM CHLORIDE 0.9% P/F 10 ML VIAL IJ ONE (15:19)
[2019-01-26] MEDS ORDERED: ceFAZolin SODIUM 1 GM VIAL IVPB ONE ×3 (16:13→16:40)
[2019-01-26] MEDS ORDERED: LIDOCAINE HCL/PF 2% SDV 5ML VIAL ONE (16:31)
[2019-01-26] MEDS ORDERED: ONDANSETRON 4 MG/2 ML VIAL ONE (16:31)
[2019-01-26] MEDS ORDERED: DEXAMETHASONE SOD PHOSPHATE 4 MG/1 ML VIAL ONE (16:31)
[2019-01-26] MEDS ORDERED: ACETAMINOPHEN 1000 MG/100 ML VIAL (NON FORMULARY) IVPB ONE (16:55)
[2019-01-26] MEDS ORDERED: oxyCODONE HCL 5 MG TABLET PO PRN ×2 (16:55)
[2019-01-26] MEDS ORDERED: ONDANSETRON 4 MG/2 ML VIAL IVPUSH PRN (17:00)
[2019-01-26] MEDS ORDERED: LACTATED RINGERS SOLUTION 1,000 ML IV SCH (17:00)
--- NOTE | 2019-01-26 19:00 | OP ---
Operative Note - Note: Operative Date: 01/26/19 Pre-Operative Diagnosis: right radial shaft fracture Operation: ORIF right radial shaft, removal hardware, bone graft (5cc [place]) Implants: 2 x May low profile titanium plates 5 hole and 7 hole, and 6 x screws 14,14,14,16,16,and 18mm, and 5cc [employer] putty Surgeon: Stephen Ladd Stage Electrician: Zafar Bullock Anesthesiologist/MINING HELPER: Nohemi Davison Anesthesia: General, Local Specimens Removed: hardware, [place] [employer] screws: 2 x 3.5mm screws, and 3 x 2.5mm screws Estimated Blood Loss (mls): 0 Drains, Volume Out (mls): 0 Blood Volume Replaced (mls): 0 Fluid Volume Replaced (mls): 700 Operative Report Dictated: Yes
[2019-01-26] MEDS ORDERED: ACETAMINOPHEN INJECTION 100 ML IVPB ONE (20:10)
--- NOTE | 2019-01-26 22:38 | OP ---
DATE OF OPERATION: 01/26/2019 PREOPERATIVE DIAGNOSIS: Right radial shaft fracture, periprosthetic. POSTOPERATIVE DIAGNOSIS: Right radial shaft fracture, periprosthetic. PROCEDURE: Open reduction/internal fixation, right forearm radial shaft, and removal of hardware. SURGEON: Rubin Masters MD WINDOWS SYSTEMS ENGINEER: JOSE ROBERTO Gonzalez ANESTHESIA: Right interscalene block. DRAINS: None. COMPLICATIONS: None. SPECIMEN: None. BLOOD LOSS: Minimal. BLOOD GIVEN: None. FLUID REPLACEMENT: 700 mL. The patient is a 58-year-old female with a preoperative diagnosis of a right radial shaft fracture. Approximately 5 years ago, she sustained a distal radius fracture and I fixed it with a [email or web address] low-profile titanium DVR plate. She healed well; she was doing great clinically; having no problems whatsoever; excellent range of motion, function, strength; and no pain. She fell and sustained a periprosthetic radial shaft fracture. It was displaced and unstable; she needed surgery. We had a long conversation about the potential risks, complications, alternatives, and benefits of surgical versus nonsurgical treatment. The patient was brought to the operating room, given. One gram of IV Ancef was given. Right interscalene block was performed. The right upper extremity was prepped and draped in sterile fashion. It was elevated and exsanguinated with an Esmarch bandage and tourniquet inflated to 250 mmHg. A fresh No. 15 scalpel was utilized to cut down through the skin. The incision was extended proximally. Subcutaneous hemostasis was achieved with bipolar cautery. Dissection was done with the Littler scissors and my finger for blunt dissection down to the volar aspect of the radial plate. Weitlaner retractor was placed into the wound. The patient had bone that had overgrown the plate and into the screw heads. I spent a long time trying to get the bone out with a curette, with a corner of an osteotome, and then, ultimately, with a drill. I was only partially successful. I was able to get out 2 of the 3 proximal purple 3.5-mm screws. The last one was completely stripped and impossible to get out with bony overgrowth. Next, the same thing happened distally, where I was able to get out 3 of the 5 partially-threaded, small, 2.5-mm distal locking screws. Two were completely stripped and absolutely impossible to get out; therefore, I was left with no choice but to leave this plate in place, but still do an ORIF fixation of the periprosthetic radial shaft fracture. Using a variety of plates, I tried a Recon plate, a 1/3 tubular plate, putting the plate on the side of the radius and then, ultimately, the side of the radius was so thin, it was quite small, I was not able to get good fixation laterally because I would then have to use Dall-Miles cables if the screws were in the same place as the other screw distally and I did not like that the idea that the Dall-Miles cable in this part of the body would be too big. We only have the standard ones that are used for the hip and, therefore, I created a construct that I have seen before and learned about in training. As the DVR left in place was Buford titanium and low-profile, I put on a May titanium low-profile plate proximal to this plate on the radial shaft and then put a stacked plate, overlapping both plates, lined up the holes, and saw that it would fit and I would be able to do that. The 1st plate on the bone was a 5-hole plate and the one stacked above both plates was a 7-hole plate. Then, very carefully, after setting up for a long period of time, getting multiple x-rays in multiple planes, I put on the 5-hole plate, held it in place to the radial shaft with an alligator forceps and put the 7-hole plate on top of it and then put in a 16-mm full-threaded, nonlocking screw through the 2nd to last hole that was in the stacked plate, which was going through a hole that had already been drilled in the original plate. X-rays were taken; it looked quite good; therefore, I tried to compress the fracture site as much as possible, but at this point, I was obligated to put the holes where they were. I put in a 14-mm fully-threaded, nonlocking screw proximal to the fracture site, going through both plates and the radial shaft. This was 14 mm in length. X-rays were taken; it looked quite good and, therefore, I continued. I put the alligator clamp on the fracture site and, ultimately, through the 5-hole plate in the bone and the 7-hole plate stacked above both plates, I put in 6 screws, all fully-threaded, nonlocking of 18, 16, 16, 14, and 14 mm in length in that order from [id number]. In addition, I supplemented at the fracture site with 2 double-threaded FiberWire lassos, cinching them down, holding both plates in place to the fracture fragment and this brought it down quite nicely as well. Final x-rays were taken in multiple AP, lateral, and oblique planes and, overall, the construct was quite good. Next, I put in 5 mL of Sukumar putty bone graft at the fracture site. Next, I used 2-0 Vicryl to close the muscle layer above the plate, 4-0 undyed Vicryl to close the deep dermal layer. Final skin reapproximation was done with a running subcuticular 4-0 Biosyn stitch. The area was then washed and dried, covered with Steri-Strips, 4x4, Webril, and a posterior long-arm, 5-inch Ortho-Glass splint was applied, wrapped with 2 Lobito bandages. Tourniquet was taken down after a total tourniquet time of about 1 hour 45 minutes. There were no complications during the case. The patient tolerated the procedure well and was brought to the ambulatory recovery room in stable condition. RUBNI MASTERS M.D. [id number]
[2019-01-26] MEDS: ACETAMINOPHEN 325 MG TABLET (FP) PO SCH (23:37)
[2019-01-27] MEDS: ACETAMINOPHEN 325 MG TABLET (FP) PO SCH ×2 (05:36→11:43)
[2019-01-27] MEDS: HEPARIN NA (PORCINE) 5,000 UNITS/ML 1ML VIAL SQ SCH (06:09)
--- NOTE | 2019-01-27 10:28 | PN ---
Progress Note (short form) - Note Progress Note: Pt seen and examined, on POD #1. She is doing well, min c/o left wrist and arm pain. Surgery discussed in detail with her. Dressing CDI Splint in place. All fingers with good ROM, NVI, good capillary refill < 2 sec. Pt stable, doing well. She can be DC'd from an ortho pov Follow up in my office in 2 weeks
--- NOTE | 2019-01-27 10:51 | DS ---
Physical Exam: SUBJECTIVE: Patient seen and examined at the bedside. she is s/o left radial surgical repair. she is refusing any narcotic pain medications and asking only for Tylenol. She tells me that she will not take anything stronger than Tylenol. OBJECTIVE: Vital Signs Period Temp Pulse Resp BP Sys/Wallace Pulse Ox Last 24 Hr 97.5 F-98.5 F 75-107 16-20 103-141/59-97 95-100 PHYSICAL EXAM GENERAL: The patient is awake, alert, and fully oriented, in no acute distress. HEAD: Normal with no signs of trauma. EYES: PERRL, extraocular movements intact, sclera anicteric, conjunctiva clear. No ptosis. ENT: Ears normal, nares patent, oropharynx clear without exudates, moist mucous membranes. NECK: Trachea midline, full range of motion, supple. LUNGS: Breath sounds equal, clear to auscultation bilaterally, no wheezes HEART: Regular rate and rhythm, ABDOMEN: Soft, nontender, nondistended, normoactive bowel sounds, no guarding, EXTREMITIES: left arm immobilized, fingers warm Less pain Left UE denies any tingling and numbness-refusing pain medications. NEUROLOGICAL: Normal speech, ambulates with RW PSYCH: Normal mood, normal affect. SKIN: Warm, dry, normal turgor, no rashes or lesions noted LABS HOSPITAL COURSE: Date of Admission:01/25/19 Date of Discharge: 01/27/19 PRE HOSPITAL COURSE: Patient is a 58 year old female her with left distal radial fracture after sustaining a mechanical fall. She has bee evaluated by ortho schedule for old ORIF with removal and plating. Patient has a history of falling onto her outstretched left arm, where she had previous surgery on the same arm more than 5 years ago. On exam, Patient denies any numbness, weakness or tingling of her hands, but reports significant pain in the area. At the ED, ortho was consulted and attempt to reduce the fracture was unsuccessful. Attempt was also made to transfer patient to [facility] but was denied. HOSPITALIZATION: Distal radius fracture, left extremity s/p fall with an acute, right, displaced radial shaft fracture, in the setting of a previous distal radius fracture and ORIF with plate and screws. right radial shaft fracture S/P ORIF right radial shaft, removal hardware, bone graft (5cc [place]). with implants. Patient is to follow up with Dr. Ladd in 1-2 weeks. Cerebral palsy continue supportive care. ambulates with RW. Patient requesting for more help at home. SW aware and following. seen by physical therapy during hospital stay. History of ortega lower extremity weakness. ambulates with RW on ASA at home Discharge home with outpatient follow with ortho. full code. Minutes to complete discharge: 60 Discharge Summary Reason For Visit: FRACTURE OF DISTAL END OF LEFT RADIUS Current Active Problems Cerebral palsy (Acute) Distal radius fracture, left (Acute) Pre-op evaluation (Acute) Condition: Fair - Instructions Diet, Activity, Other Instructions: Mrs Granado: You had a You had a right radial shaft fracture repair on 01/26/[address] Ladd. Here are our discharge instructions: Keep the splint in place. No lifting from this arm Please see Dr. Ladd in 2 weeks for a follow up appointment. Please continue to take the pain medications as needed. If you experience any worsening pain or swelling, please return to the ER immediately. Thank you for allowing us to care for you. Referrals: Stephen Ladd MD [Staff Physician] - 2 Weeks Disposition: HOME - Home Medications Comprehensive Discharge Medication List: Ambulatory Orders Aspirin [ASA -] 81 mg PO DAILY 01/22/19 Acetaminophen [Tylenol .Regular Strength -] 650 mg PO Q6H #0 tablet 01/27/19 This patient is new to me today: No Emergency Visit: Yes ED Registration Date: 01/25/19 Care time: The patient presented to the Emergency Department on the above date and was hospitalized for further evaluation of their emergent condition. Critical Care patient: No - Discharge Referral Referred to [facility] No
[2019-01-27 12:09] VITALS: BP 118/76; PULSE 109; TEMP 98.6
--- NOTE | 2019-01-28 09:51 | PATH ---
Surgical Pathology Report Patient Name: ALLYSSA LOPEZ Med. Rec. #: [id number] /Age/Gender: 1960 (Age: 58) / F Account: [id number] Location: [facility] MED/SURG Taken: 01/26/2019 Received: 01/27/2019 Reported: 01/28/2019 Physicians: Yudy Larios MD Specimen(s) Received HARDWARE Clinical History Fractured distal end of left radius Final Diagnosis WRIST/RADIUS, LEFT, HARDWARE, REMOVAL: SURGICAL HARDWARE. MACROSCOPIC DIAGNOSIS. Electronically Signed Kaity Rose M.D. Gross Description Received fresh labeled "hardware left wrist," are 6 metallic screws ranging from 1.4-2.2 cm in length. No soft tissue is present. No sections are submitted, gross only. DL/01/27/2019 saudi/01/27/2019
== END 2019-01-27 13:18 | disposition home or self-care (01) | DRG 496 ==
LOC: JERFT 19:19 → JERBED 01-23 01:42 → J7W 01-23 17:42 → OBSVTOIN 01-25 12:09
PROVIDERS: ADMIT Internal Medicine; ATTEND Nurse Practitioner Family
PROC: 0PSJ04Z Reposition Left Radius with Internal Fixation Device, Open Approach (ICD-10-PCS; principal; 2019-01-22)
PROC: 0PPJ04Z Removal of Internal Fixation Device from Left Radius, Open Approach (ICD-10-PCS; 2019-01-22)
PROC: 0PSJXZZ Reposition Left Radius, External Approach (ICD-10-PCS; 2019-01-22)
PROC: 2W3DX1Z Immobilization of Left Lower Arm using Splint (ICD-10-PCS; 2019-01-22)
DX: S52.322A Displaced transverse fracture of shaft of left radius, initial encounter for closed fracture (principal); M97.8XXA Periprosthetic fracture around other internal prosthetic joint, initial encounter; G80.9 Cerebral palsy, unspecified; W18.39XA Other fall on same level, initial encounter; Y92.098 Other place in other non-institutional residence as the place of occurrence of the external cause
CPT/HCPCS: 36415; 71046-TC-FY; 73070-TC-LT-FY; 73110-TC-LT-FY; 73130-TC-LT-FY; 76000-TC-FY; 80048; 80053; 83735; 84100; 85025; 85610; 85730; 88300-TC; 93005; 93010; 94760; 97116-GP; 97161-GP; 99284-25; G0378; J0131; J1644; J7030